=== PATIENT | male | born 1960 | race Caucasian/White ===

== ENCOUNTER → 2021-08-29 | Outpatient (CLI) | payer SELFPAY | LOC: EDBD 13:40 → HEART 5 13:40 | DX: R06.02 Shortness of breath (principal); R93.89 Abnormal findings on diagnostic imaging of other specified body structures | CPT/HCPCS: 94060; 94729 ==

== ENCOUNTER → 2021-10-12 | Outpatient (CLI) | payer MEDICAID | LOC: EDBD 13:30 → KOH-I 13:30 | DX: R91.8 Other nonspecific abnormal finding of lung field (principal) | CPT/HCPCS: 71250 ==

== ENCOUNTER → 2021-11-14 | Outpatient (CLI) | payer OTHER | LOC: HEART 5 10-23 09:00 → EDBD 10-31 08:00 → HEART 5 10-31 08:00 | DX: R55 Syncope and collapse (principal); I08.1 Rheumatic disorders of both mitral and tricuspid valves | CPT/HCPCS: 93306 ==